=== PATIENT | male | born 2005 | race Two or more races ===

== ENCOUNTER 2023-07-21 15:33 | Emergency (ER) | payer MEDICAID, OTHER ==
[2023-07-21 18:29] VITALS: BP 159/82; PULSE 103; RESP 18; TEMP 98.1; O2SAT 98
[2023-07-21] MEDS ORDERED: IBUP-1456 PO (18:42)
== END 2023-07-21 19:55 | disposition home or self-care (01) ==
LOC: ER 15:33
DX: G44.209 Tension-type headache, unspecified, not intractable (principal); F12.10 Cannabis abuse, uncomplicated; J45.909 Unspecified asthma, uncomplicated
CPT/HCPCS: 70450

== ENCOUNTER 2024-05-05 11:49 | Emergency (ER) | payer OTHER ==
[~2024-05-05] VITALS: Ht 167.6 cm; Wt 89.0 kg
[~2024-05-05 11:49] MED LIST: IBUP-1456 PO
--- NOTE | 2024-05-05 11:58 | ECG ---
[facility] Test Date: 2024-05-05 Test Time: 11:54:29 Pat Name: SALONI MCNAMARA Department: ER Room: Gender: M Plumbing Warehouse Helper: GV : 2005 Requested By: ISAIAS FLORES Order Number: [id number] Reading MD: Sandor Boyd Measurements Intervals [place] Rate: 110 P: 76 IA: 191 QRS: 222 QRSD: 96 T: 63 QT: 323 QTc: 438 Interpretive Statements Sinus tachycardia Biatrial enlargement Right ventricular hypertrophy ST elev, probable normal early repol pattern Electronically Signed On 05-05-2024 12:55:21 PST by Sandor Boyd Please click the below link to view image of tracing.
--- NOTE | 2024-05-05 12:05 | ED.PDOC ---
HPI Comments HPI: Poor Historian. 19 y.o male presents to the ED for a chief complaint of mid sternal chest pain associated with palpitations and nausea that started last night. Patient describes pain as a pressure sensation, states it is constant, non radiating and rating a 6/10 on the pain scale. Patient denies any vomiting, leg swelling, cardiac history, lightheadedness or SOB. Patient mentions having a couple beers last night, does admit to drinking daily about 1-2 beers. Patient also reports the use of marijuana. No tobacco use. Vital signs: BP: 150/73 HR: 107 Temp: 97.3 F SPO2: 99% RA RR: 20 Patient denies any allergies Past medical history: Asthma Past surgical history: Denies Denies use of drugs REVIEW OF SYSTEMS: CONSTITUTIONAL: Denies acute: fever, diaphoresis, chills, generalized weakness. HEAD: Denies acute: headache, photophobia Eyes: Denies acute: Double vision, vision loss, eye pain, eye discharge. EARS: Denies acute: tinnitus, hearing loss, ear discharge, ear pain, THROAT: Denies acute: sore throat, swelling, difficulty swallowing , pain with swallowing, change in voice. NECK: Denies acute: neck pain, neck swelling, stiff neck. HEART: Denies acute : LUNGS: Denies acute: SOB, wheezing, cough, hemoptysis ABDOMEN: Denies acute: abdominal pain, Nausea, Vomiting, diarrhea, melena , hematemesis, hematochezia SKIN: Denies acute: rash, redness, lesions, itchiness. EXTREMITIES: Denies acute: calf pain, numbness, tingling, weakness, denies pain in extremity. Denies acute: Low back pain. Neuro: Denies acute: focal neurological deficit, motor or sensory focal neurological deficit, tremors, seizure like activity, confusion, dizziness, change in mental status, loss of bowel or bladder function, cauda equina like symptoms. : Denies acute: dysuria, hematuria, flank pain, increase in urinary frequency. PSYCH: Denies acute: hallucination, suicidal ideation, homicidal ideation. PHYSICAL EXAM: General: no acute distress, awake and alert. Head: normocephalic, atraumatic. Neck: supple, trachea is midline, no swelling. Throat: Normal phonation. Eyes:, no erythema, no purulent discharge, no proptosis, no icterus. Heart: regular tachycardia, no significant murmur appreciated. Lungs: no apparent respiratory distress, Able to speak in full sentences. No wheezing, no rhonchi, no crackles. No stridors Clear to auscultation bilaterally. Abdomen: non tender to palpation, non distended, soft, no guarding, no rebound, + bowel sounds. Neuro: Awake, Alert, oriented to name, self, situation, follows commands GCS=15. Speech is normal. Skin: no petechia, no purpura, no cyanosis, non-pale, not jaundice. Lower extremities: --no - Pitting edema no deformity, no focal swelling, no calf TTP. Makes eye contact. moves all four extremities. Face: no apparent facial droop. Ambulating in the ED independently. Chief Complaint: Chest Pain Time Seen by MD: 12:00 Primary Care Provider: UNKNOWN Reviewed Notes: Allergies Allergies: Coded Allergies: No Known Drug Allergy (Verified Allergy, Unknown, 07/21/23) Home Meds Active Scripts Ibuprofen (Ibuprofen) 800 Mg Tab, 1 TAB PO TID PRN, #30 TAB 0 Refills Prov:SLY SUAREZ 07/21/23 Information Source: Patient Mode of Arrival: Ambulatory Timing: Hours Past Medical History PAST MEDICAL HISTORY: Asthma Surgical History: Denies all surgeries Family History Family History: Unknown Social History Smoker: Non-Smoker, Other Alcohol: Occasionally Drugs: Marijuana Lives In: Home Was a procedure done? Was a procedure done?: No CP Differential Dx Differential Diagnosis: Angina, Electrolyte Disorder, N/A Differential Diagnosis: Angina, Chest Wall Pain, Cholelithiasis, Costochondritis, Pericarditis, Other (Ddx include but not limitied to gastritis, musculoskeletal pain, radiculopathy, atypical chest pain, dissection, aneurysm, ACS, unstable angina, hiatal hernia, GERD, anxiety, costochondritis, PE, pneumo throax, neoplasm, cardiac ischemia, drug abuse, anemia.) X-Ray, Labs, Meds, VS Vital Signs Date Time Temp Pulse Resp B/P (MAP) Pulse Ox O2 Delivery O2 Flow Rate FiO2 05/05/24 15:16 95 16 153/96 (115) 97 05/05/24 14:29 87 18 144/87 (106) 98 05/05/24 13:03 107 20 98 Room Air* 0 21 05/05/24 12:50 96 05/05/24 12:09 98.0 107 20 147/97 (114) 98 98.0 05/05/24 11:54 110 05/05/24 11:50 97.3 107 20 150/73 (98) 97 Lab Test 05/05/24 15:17 05/05/24 14:59 05/05/24 14:13 05/05/24 12:52 Range/Units Urine Color Colorless Yellow Urine Clarity Clear Clear Urine pH 7.0 5.0-9.0 Urine Specific [place] 1.011 1.001-1.035 Urine Protein Negative Negative Urine Ketones Negative Negative Urine Blood Negative Negative /uL Urine Nitrite Negative Negative Urine Bilirubin Negative Negative Urine Urobilinogen Normal Negative mg/dL Urine Leukocyte Esterase Negative Negative /uL Urine RBC None seen 0 - 3 /hpf Urine WBC <1 0 - 3 /hpf Urine Squamous Epithelial Cells None seen <5 /hpf Urine Bacteria Few H None Seen /hpf Urine Sperm Present None Seen /hpf Urine Glucose Normal Normal mg/dL Urine Opiates Screen Neg NEGATIVE Urine Fentanyl Screen Neg NEGATIVE Urine Barbiturates Screen Neg NEGATIVE Urine Phencyclidine Screen Neg NEGATIVE Urine Amphetamines Screen Neg NEGATIVE Urine Benzodiazepines Screen Neg NEGATIVE Urine Cocaine Screen Neg NEGATIVE Urine Cannabinoids Screen Neg NEGATIVE Lactic Acid Level 1.3 0.4-2.0 mmol/L Troponin I High Sensitivity < 3 L < 3 L </=54 ng/L Test 05/05/24 12:02 Range/Units White Blood Count 8.4 4.4-10.8 10^3/uL Red Blood Count 5.95 H 4.5-5.90 10^6/uL Hemoglobin 17.9 H 13.5-17.5 g/dL Hematocrit 50.8 41.0-53.0 % Mean Corpuscular Volume 85.3 80.0-100.0 fL Mean Corpuscular Hemoglobin 30.1 28.0-32.0 pg Mean Corpuscular Hemoglobin Concent 35.3 32.0-36.0 g/dL Red Cell Distribution Width 13.4 11.8-14.3 % Platelet Count 263 140-450 10^3/uL Mean Platelet Volume 8.9 6.9-10.8 fL Neutrophils (%) (Auto) 64.6 37.0-80.0 % Lymphocytes (%) (Auto) 27.4 10.0-50.0 % Monocytes (%) (Auto) 5.9 0.0-12.0 % Eosinophils (%) (Auto) 1.3 0.0-7.0 % Basophils (%) (Auto) 0.8 0.0-2.0 % Neutrophils # (Auto) 5.4 1.6-8.6 10 ^3/uL Lymphocytes # (Auto) 2.3 0.4-5.4 10 ^3/uL Monocytes # (Auto) 0.5 0-1.3 10 ^3/uL Eosinophils # (Auto) 0.1 0-0.8 10 ^3/uL Basophils # (Auto) 0.1 0-0.2 10 ^3/uL Nucleated Red Blood Cells 0.0 % D-Dimer, Quantitative < 0.19 0.0-0.49 mg/L FEU Sodium Level 137 136-145 mmol/L Potassium Level 3.5 3.5-5.1 mmol/L Chloride Level 102 98-107 mmol/L Carbon Dioxide Level 26 20-31 mmol/L Anion Gap 9 5-15 Blood Urea Nitrogen 10 9-23 mg/dL Creatinine 1.18 0.700-1.30 mg/dL Glomerular Filtration Rate Calc 90 >90 mL/min BUN/Creatinine Ratio 8.5 L 10.0-20.0 Serum Glucose 106 74-106 mg/dL Lactic Acid Level 2.5 *H 0.4-2.0 mmol/L Calcium Level 11.1 H 8.7-10.4 mg/dL Magnesium Level 2.0 1.6-2.6 mg/dL Total Bilirubin 1.1 H 0.2-1.0 mg/dL Aspartate Amino Transferase (AST) 17 13-40 U/L Alanine Aminotransferase (ALT) 24 7-40 U/L Alkaline Phosphatase 78 46-116 U/L Troponin I High Sensitivity < 3 L </=54 ng/L Total Protein 8.4 H 5.7-8.2 g/dL Albumin 5.4 H 3.2-4.8 g/dL Thyroid Stimulating Hormone (TSH) 1.49 0.55-4.78 uIU/mL Current Medications Medications (Trade) Dose Ordered Sig/Tiburcio Route Start Time Stop Time Status Last Admin Sodium Chloride 1,000 ml @ 1,000 mls/hr Q1H ONCE IV 05/05/24 12:00 11/7/24 12:59 DC 05/05/24 12:11 Aspirin 325 mg ONCE ONCE PO 05/05/24 12:00 05/05/24 12:16 DC 05/05/24 12:10 Sodium Chloride 1,000 ml @ 1,000 mls/hr Q1H ONCE IV 05/05/24 13:15 05/05/24 14:14 DC 05/05/24 13:15 [place] [id number] Ph: [phone] DIAGNOSTIC IMAGING Diagnostic Imaging Report : [id number] Signed PATIENT: SALONI MCNAMARA ACCT: [id number] UNIT: [id number] : 2005 LOC: ER ROOM / BED: / AGE / SEX: 19 / M ADM STATUS: REG ER SERVICE 1155 ORDERING PHYSICIAN: ISAIAS FLORES DO PROCEDURE(s): CXRP - CHEST PORTABLE REASON: cp ORDER NUMBER(s): [id number], ACCESSION NUMBER(s): [id number] Procedure: XY CHEST PORTABLE 05/05/2024 12:02 PM Indication: cp. Comparison: None TECHNIQUE: XY CHEST PORTABLE FINDINGS: Medical devices: None. Cardiomediastinal: The heart is normal in size. Pulmonary vasculature is within normal limits. Lungs: No focal pulmonary opacity is seen. The costophrenic angles are clear. No pneumothorax. Bones/soft tissues: No acute abnormality is noted. IMPRESSION: 1. No acute cardiopulmonary disease. ATED BY: MILEY CHAMPION MD DICTATED DATE/TIME: 05/05/24 1221 SIGNED BY: MILEY CHAMIPON MD SIGNED DATE/TIME: 05/05/24 1221 CC: Time of 1ST Reevaluation: 12:15 Reevaluation 1ST: Unchanged Time of 2ND Reevaluation: 16:30 Reevaluation 2ND: Resolved Patient Education/Counseling: Diagnosis, Treatment Family Education/Counseling: No Family Present Comments Patient presented with the above HPI.---cardiac---workup was initiated. patient was found with the above mentioned diagnosis. Patient was given: Fluids, aspirin, nitroglycerin Patient ED course and VS have been stabilized. Patient has been reassessed in the ED and remained in a stable condition. Pertinent incidental findings were discussed with the patient and/or family. Patient/family voices understanding and is agreeable with plan. Patient has been observed in the ED adequate length of time to insure improvement/stability. patient was discharged home in a stable condition. Heart score is 0 All the reports of any imaging studies that were ordered by myself were reviewed by myself. Departure 1 Departure Time of Disposition: 16:30 Impression: Primary Impression: Chest pain Disposition: HOME / SELF CARE / HOMELESS Condition: Stable Additional Instructions: Additional discharge instructions: You MUST follow-up with your primary care/family doctor in 1 to 2 days. If you are unable to see your primary care/family doctor, please return to our emergency room for re-assessment and re-evaluation in 1 to 2 days. Return to the emergency room here in our facility or to the nearest ER SUNDAY if your symptoms change or worsen. CONSULTATIONS: you MUST Follow-up for consultation as soon as possible with: cardiology in 1-2 days. Please call for appointment You MUST call the consultants office yourself to make an appointment. You may need to arrange that through your insurance and/or your primary/family doctor. If you are unable to see the cosmetic consultant in 1 to 2 days, you must return to our emergency room (or any other ER of your choice) for re-assessment and re- evaluation. Adequate fluid hydration. Discharged With: Self Critical Care Note Critical Care Time?: No I personally scribed for ISAIAS FLORES DO ([email or web address]) on 05/05/24 at 12:05. Electronically submitted by Ana Downey ([email or web address]). I personally scribed for ISAIAS FLORES DO ([email or web address]) on 05/05/24 at 12:18. Electronically submitted by Ana Downey ([email or web address]). I personally scribed for ISAIAS FLORES DO ([email or web address]) on 05/05/24 at 13:42. Electronically submitted by Ana Downey ([email or web address]). ISAIAS FLORES DO May 05, 2024 12:05
[2024-05-05] MEDS: ASPirin 325 MG TAB PO ONE (12:10)
[2024-05-05] MEDS: SODIUM CHLORIDE 0.9% 1,000 ML IV ONE ×2 (12:11→13:15)
--- NOTE | 2024-05-05 12:23 | DVH ---
Procedure: XY CHEST PORTABLE 05/05/2024 12:02 PM Indication: cp. Comparison: None TECHNIQUE: XY CHEST PORTABLE FINDINGS: Medical devices: None. Cardiomediastinal: The heart is normal in size. Pulmonary vasculature is within normal limits. Lungs: No focal pulmonary opacity is seen. The costophrenic angles are clear. No pneumothorax. Bones/soft tissues: No acute abnormality is noted. IMPRESSION: 1. No acute cardiopulmonary disease.
[2024-05-05 12:34] LABS: Basophils # (auto) 0.1 10 ^3/uL (0-0.2); Eosinophils # (auto) 0.1 10 ^3/uL (0-0.8); Eosinophils % (auto) 1.3 % (0.0-7.0); Hemoglobin 17.9 g/dL (13.5-17.5); Monocytes # (auto) 0.5 10 ^3/uL (0-1.3); Red Blood Cells 5.95 10^6/uL (4.5-5.90); White Blood Cell 8.4 10^3/uL (4.4-10.8)
[2024-05-05 12:36] LABS: Basophils % (auto) 0.8 % (0.0-2.0); Hematocrit 50.8 % (41.0-53.0); Lymphocytes # (auto) 2.3 10 ^3/uL (0.4-5.4); Lymphocytes % (auto) 27.4 % (10.0-50.0); Mean Corpuscular Hemoglobin 30.1 pg (28.0-32.0); Mean Corpuscular Hgb Conc. 35.3 g/dL (32.0-36.0); Mean Corpuscular Volume 85.3 fL (80.0-100.0); Monocytes % (auto) 5.9 % (0.0-12.0); Neutrophils # (auto) 5.4 10 ^3/uL (1.6-8.6); Neutrophils % (auto) 64.6 % (37.0-80.0); Platelet Count (auto) 263 10^3/uL (140-450); Red Cell Distribution Width 13.4 % (11.8-14.3)
[2024-05-05 12:57] LABS: Alanine Aminotransferase 24 U/L (7-40); Albumin 5.4 g/dL (3.2-4.8); Alkaline Phosphatase 78 U/L (46-116); Anion Gap 9 (5-15); Aspartate Aminotransferase 17 U/L (13-40); BUN/Creatinine Ratio 8.5 (10.0-20.0); Bilirubin, Total 1.1 mg/dL (0.2-1.0); Blood Urea Nitrogen 10 mg/dL (9-23); Calcium 11.1 mg/dL (8.7-10.4); Carbon Dioxide 26 mmol/L (20-31); Chloride 102 mmol/L (98-107); Glucose 106 mg/dL (74-106); Potassium 3.5 mmol/L (3.5-5.1); Sodium 137 mmol/L (136-145); Total Protein 8.4 g/dL (5.7-8.2)
[2024-05-05 13:03] VITALS: PULSE 107; RESP 20; O2SAT 98
[2024-05-05 13:06] LABS: Lactic Acid w/Reflex 2.5 mmol/L (0.4-2.0)
[2024-05-05 16:01] LABS: Urine Bacteria FEW /hpf (None Seen); Urine Blood Negative /uL (Negative); Urine Clarity Clear (Clear); Urine Color Colorless (Yellow); Urine Protein, UAD Negative (Negative); Urine Specific Gravity 1.011 (1.001-1.035); Urine Sperm PRESENT /hpf (None Seen); Urine Urobilinogen Normal (Negative); Urine WBC <1 /hpf (0 - 3)
[2024-05-05 16:11] LABS: Amphetamine Screen, Urine Neg (NEGATIVE); Barbiturate Scree,Urine Neg (NEGATIVE); Benzodiazephine Screen, Urine Neg (NEGATIVE); Cannabinoid Screen, Urine Neg (NEGATIVE); Cocaine Screen, Urine Neg (NEGATIVE); Opiate Scree,Urine Neg (NEGATIVE); Phencyclidine Screen, Urine Neg (NEGATIVE)
[2024-05-05 16:54] VITALS: BP 122/90; PULSE 107; RESP 20; TEMP 98.1; O2SAT 98
--- NOTE | 2024-05-05 19:21 | ECG ---
[facility] Test Date: 2024-05-05 Test Time: 12:50:19 Pat Name: SALONI MCNAMARA Department: ED Room: Gender: M Sr. Payroll Manager: LULY : 2005 Requested By: ISAIAS FLORES Order Number: [id number] Reading MD: Measurements Intervals [place] Rate: 96 P: 71 [place]: 166 QRS: 250 QRSD: 88 T: 63 QT: 329 QTc: 416 Interpretive Statements Sinus rhythm Right superior axis Please click the below link to view image of tracing.
== END 2024-05-05 17:03 | disposition home or self-care (01) ==
LOC: ER 11:54
DX: R07.89 Other chest pain (principal); J45.909 Unspecified asthma, uncomplicated; F15.90 Other stimulant use, unspecified, uncomplicated; Z87.891 Personal history of nicotine dependence; Z79.899 Other long term (current) drug therapy
CPT/HCPCS: 36415; 71045; 80053; 80307; 81001; 83605; 83735; 84443; 84484; 85025; 85379; 93005; 96360; 99285; J7030